=== PATIENT | male | born 1950 | race Caucasian/White ===

== ENCOUNTER → 2016-05-30 | Outpatient (CLI) | payer BC ==
[~2016-05-30] MED LIST: ASPI81TA28 PO; COEN100C7 PO; DEXL60CA4 PO; GLUCTAB7 PO; LISI20TA3 PO; MELA1TAB5 PO; MELA5TAB18 PO; MULT-190 PO; MULT-513 PO; OMEGCAP2 PO; PROB1TAB16 PO; SIMV-150 PO; TRAZ50TA35 PO; ZOLP5TAB PO
[2016-05-30 17:39] LABS: URINE APPEARANCE CLEAR (CLEAR); URINE BILIRUBIN NEG (NEG); URINE COLOR YELLOW; URINE EPITHELIAL CELL AUTO 0-5 /lpf (0-5); URINE NITRITE NEG (NEG); URINE PH 6.5 (4.5-7.5); URINE SPECIFIC GRAVITY 1.014 (1.000-1.030); UROBILINOGEN NEG (NEG); ZZUR CULT IF INDIC CLEAN CATCH YES
[2016-05-30 17:48] LABS: MANUAL MICROSCOPIC REQUIRED? NO; REVIEW REQ? NO
== END | disposition home or self-care (01) ==
LOC: C.LAB1850 15:51
PROVIDERS: ATTEND Internal Medicine
DX: N39.0 Urinary tract infection, site not specified (principal)

== ENCOUNTER → 2016-06-04 | Outpatient (CLI) | payer BC ==
[2016-06-04 17:33] LABS: BASO % 0.5 %; BASO ABS # 0.04 K/uL (0-0.2); COMPLETE YES; EOS % 1.8 %; HEMATOCRIT 39.9 % (42-52); IG% 0.5 %; LYMPH % 15.1 %; LYMPH ABS # 1.27 K/uL (1.2-3.4); MEAN CORPUSCULAR HEMOGLOBIN 32.2 pg (25-34); MEAN CORPUSCULAR HGB CONC 34.6 g/dl (32-36); MEAN PLATELET VOLUME 10.2 fL (7.4-10.4); MONO % 10.4 %; NEUT % 71.7 %; PLATELET COUNT 263 K/uL (130-400); RED BLOOD COUNT 4.29 M/uL (4.7-6.1)
[2016-06-04 17:51] LABS: ALT/SGPT 237 U/L (12-78); AST/SGOT 136 U/L (15-37); BLOOD UREA NITROGEN 12 mg/dl (7-18); BUN/CREATININE RATIO 12.1 (10-20); CALCIUM 8.9 mg/dl (8.5-10.1); CARBON DIOXIDE 29 mmol/L (21-32); CHLORIDE 103 mmol/L (98-107); GLUCOSE 100 mg/dl (70-99); POTASSIUM 3.6 mmol/L (3.5-5.1); SODIUM 141 mmol/L (136-145)
[2016-06-04 17:56] LABS: ALB/GLOB RATIO 0.9 (0.9-2); ALKALINE PHOSPHATASE 306 U/L (45-117); CHOLESTEROL 146 mg/dl (0-200); CHOLESTEROL/HDL RATIO 4.3; HDL CHOLESTEROL 34 mg/dl; LDL CHOLESTEROL CALCULATED 93 mg/dl; TRIGLYCERIDES 97 mg/dl (0-150); VERY LOW DENSITY LIPOPROT CALC 19 mg/dl
== END | disposition home or self-care (01) ==
LOC: C.LAB1850 16:38
PROVIDERS: ATTEND Internal Medicine
DX: R35.0 Frequency of micturition (principal); E78.5 Hyperlipidemia, unspecified

== ENCOUNTER → 2016-06-04 | Outpatient (CLI) | payer BC ==
[2016-06-04 18:15] LABS: URINE APPEARANCE CLEAR (CLEAR); URINE BILIRUBIN NEG (NEG); URINE COLOR YELLOW; URINE NITRITE NEG (NEG); UROBILINOGEN NEG (NEG)
[2016-06-04 18:41] LABS: MANUAL MICROSCOPIC REQUIRED? NO; REVIEW REQ? YES
[2016-06-04 19:02] LABS: URINE EPITHELIAL CELL AUTO 0-5 /lpf (0-5)
== END | disposition home or self-care (01) ==
LOC: C.LABSPEC 17:48
PROVIDERS: ATTEND Internal Medicine
DX: R35.0 Frequency of micturition (principal)

== ENCOUNTER → 2016-06-12 | Outpatient (CLI) | payer BC | END | disposition home or self-care (01) | LOC: C.LAB1850 08:59 | PROVIDERS: ATTEND Internal Medicine | DX: R97.20 Elevated prostate specific antigen [PSA] (principal); R74.8 Abnormal levels of other serum enzymes ==

== ENCOUNTER → 2016-07-15 | Outpatient (CLI) | payer BC | END | disposition home or self-care (01) | LOC: C.LABSPEC 17:15 | PROVIDERS: ATTEND Nurse Practitioner Family | DX: R30.0 Dysuria (principal) ==

== ENCOUNTER → 2016-07-31 | Outpatient (CLI) | payer BC | END | disposition home or self-care (01) | LOC: C.LAB1850 14:02 | PROVIDERS: ATTEND Urology | DX: Z00.00 Encounter for general adult medical examination without abnormal findings (principal); N39.0 Urinary tract infection, site not specified; R97.20 Elevated prostate specific antigen [PSA]; R35.0 Frequency of micturition ==

== ENCOUNTER → 2016-08-19 | Outpatient (CLI) | payer BC ==
[2016-08-21 22:40] LABS: GLIADIN DEAMIDATED IgA AB 5 UNITS (<20); GLIADIN DEAMIDATED IgG AB 3 UNITS (<20); RETICULIN IgA AB Negative (Negative)
== END | disposition home or self-care (01) ==
LOC: C.LAB1850 10:17
PROVIDERS: ATTEND Internal Medicine
DX: R14.0 Abdominal distension (gaseous) (principal); Z11.59 Encounter for screening for other viral diseases

== ENCOUNTER → 2016-10-14 | Outpatient (CLI) | payer BC ==
[~2016-10-14] VITALS: Ht 177.8 cm; Wt 94.5 kg
[2016-10-14 13:21] VITALS: BP 135/91; PULSE 79; Ht 177.8 cm; Wt 94.5 kg
== END | disposition home or self-care (01) ==
LOC: C.NEUR 12:07
PROVIDERS: ATTEND Internal Medicine Pulmonary Disease
DX: G47.30 Sleep apnea, unspecified (principal); G47.00 Insomnia, unspecified

== ENCOUNTER 2016-12-31 03:08 | Emergency (ER) | payer BC ==
[~2016-12-31] VITALS: Ht 176.5 cm; Wt 95.0 kg
[~2016-12-31 03:08] MED LIST changes: -COEN100C7 PO; -MELA5TAB18 PO; -MULT-190 PO; -ZOLP5TAB PO
[2016-12-31 03:11] VITALS: TEMP 36.4; Ht 176.5 cm; Wt 95.0 kg
[2016-12-31] MEDS ORDERED: ZOLP5TAB PO (03:45)
[2016-12-31] MEDS ORDERED: MULT-190 PO (03:45)
[2016-12-31] MEDS ORDERED: MELA5TAB18 PO (03:45)
[2016-12-31] MEDS ORDERED: COEN100C7 PO (03:45)
[2016-12-31 03:48] LABS: BASO % 0.4 %; BASO ABS # 0.02 K/uL (0-0.2); COMPLETE YES; EOS % 3.8 %; HEMATOCRIT 39.8 % (42-52); IG% 0.2 %; LYMPH % 40.4 %; LYMPH ABS # 1.89 K/uL (1.2-3.4); MEAN CELL VOLUME 91.7 fL (80-100); MEAN CORPUSCULAR HEMOGLOBIN 32.7 pg (25-34); MEAN CORPUSCULAR HGB CONC 35.7 g/dl (32-36); MEAN PLATELET VOLUME 10.1 fL (7.4-10.4); MONO % 10.7 %; NEUT % 44.5 %; PLATELET COUNT 208 K/uL (130-400); RED BLOOD COUNT 4.34 M/uL (4.7-6.1); WHITE BLOOD COUNT 4.68 K/uL (4.8-10.8)
[2016-12-31 04:09] LABS: ALT/SGPT 25 U/L (12-78); AST/SGOT 21 U/L (15-37); BLOOD UREA NITROGEN 14 mg/dl (7-18); BUN/CREATININE RATIO 14.4 (10-20); CALCIUM 8.6 mg/dl (8.5-10.1); CARBON DIOXIDE 28 mmol/L (21-32); CHLORIDE 110 mmol/L (98-107); GLUCOSE 98 mg/dl (70-99); POTASSIUM 3.8 mmol/L (3.5-5.1); SODIUM 144 mmol/L (136-145)
[2016-12-31 04:20] LABS: ALKALINE PHOSPHATASE 47 U/L (45-117)
--- NOTE | 2016-12-31 04:25 | EMERGENCY ROOM VISIT NOTE ---
History First contact with patient: 03:11 Chief Complaint: RAPID HEART RATE Stated Complaint: RAPID PULSE,HIGH BP History of Present Illness The patient is a 66 year old male who presents to the Emergency Room with complaints of racing heart this morning when he woke up to go the bathroom. he checked his heart rate on his fit and was 127. Patient states his heart rate is normally in the low 60s. Patient follows with Dr. Martinez from cardiology. He had a stress and echo 6 months ago that was normal per patient. Patient states he had a Holter monitor many years ago that was negative. Patient states he had 3 beers last night with dinner. He drinks every other night. Patient states he's been on for stress lately. Patient denies chest pain, dyspnea, fever, chills, nausea, vomiting, diarrhea, abdominal pain. No history of racing heart in the past. No prior heart disease. He states he checked his blood pressure and was 150/100. Review of Systems See HPI for pertinent positives & negatives. A total of 10 systems reviewed and were otherwise negative. Past Medical/Surgical History Medical Problems: (1) Hypertension Appendectomy, sleep apnea Family History Hypertension Social History Smoking Status: Former Smoker Alcohol Use: occasionally Drug Use: none Marital Status: Occupation Status: employed Current/Historical Medications Scheduled Aspirin (Aspirin Ec), 81 MG PO QAM Coenzyme Q10 (Ubidecarenone) (Coq10), 100 MG PO DAILY Dexlansoprazole (Dexilant), 1 TAB PO QAM Pzpskbgoskn-Povuoahyijp-Kgw C- (Glucosamine Chondroitin), 1 TAB PO QAM Lisinopril (Prinivil), 20 MG PO QAM Melatonin (Melatonin), 5 MG PO HS Multivitamins/Minerals (Mvi With Minerals), 1 TAB PO QAM Ocuvite Preservision (Ocuvite Preservision), 1 TAB PO DAILY [place]-3 Fatty Acids (Fish Oil), 1 CAP PO BID Probiotic Product (Probiotic), 1 TAB PO BID Simvastatin (Simvastatin), 10 MG PO HS Scheduled PRN Trazodone Hcl (Trazodone), 50 MG PO HS PRN for Sleep Zolpidem Tartrate (Ambien), 5 MG PO HS PRN for Sleep Physical Exam Vital Signs Date Time Temp Pulse Resp B/P (MAP) Pulse Ox O2 Delivery O2 Flow Rate FiO2 12/31/16 03:45 Room Air 12/31/16 03:43 Room Air 12/31/16 03:43 Room Air 12/31/16 03:38 82 12/31/16 03:11 36.4 100 20 142/87 92 Room Air Physical Exam VITALS: Vitals are noted on the nurse's note and reviewed by myself. Vital signs mildly hypertensive GENERAL: Pleasant male, in no acute distress, nondiaphoretic, well-developed well-nourished. SKIN: The skin was without rashes, erythema, edema, or bruising. There is no tenting of the skin. Capillary reflex less than 2 seconds. HEAD: Normocephalic atraumatic. EARS: External auditory canals clear, tympanic membranes pearly ybarar without erythema or effusion bilaterally. EYES: Pupils equal round and reactive to light and accommodation. Conjunctivae without injection, sclerae without icterus. Extraocular movements intact. NOSE: Patent, turbinates without inflammation or discharge. MOUTH: Mucous membranes moist. Pharynx without erythema or exudate. Uvula midline. Airway patent. Tongue does not deviate. NECK: Supple without nuchal rigidity. No lymphadenopathy. No thyromegaly. Cervical spine is nontender. No JVD. HEART: Regular rate and rhythm LUNGS: Clear to auscultation bilaterally without wheezes, rales or rhonchi. No dullness to percussion. No retractions or accessory muscle use. ABDOMEN: Positive bowel sounds x 4. Normal tympanic percussion. Soft, nontender, without masses or organomegaly. Horton sign negative. No guarding or rebound tenderness. MUSCULOSKELETAL: No muscle atrophy, erythema, or edema noted. NEURO: Patient was alert and oriented to person place and time. Normal sensation to light and sharp touch. No focal neurological deficits. Medical Decision & Procedures Laboratory Results 12/31/16 03:40 Red Blood Count 4.34, Mean Corpuscular Volume 91.7, Mean Corpuscular Hemoglobin 32.7, Mean Corpuscular Hemoglobin Concent 35.7, Mean Platelet Volume 10.1, Neutrophils (%) (Auto) 44.5, Lymphocytes (%) (Auto) 40.4, Monocytes (%) (Auto) 10.7, Eosinophils (%) (Auto) 3.8, Basophils (%) (Auto) 0.4, Neutrophils # (Auto ) 2.08, Lymphocytes # (Auto) 1.89, Monocytes # (Auto) 0.50, Eosinophils # (Auto ) 0.18, Basophils # (Auto) 0.02 12/31/16 03:40 Test 12/31/16 03:40 12/31/16 03:44 White Blood Count 4.68 K/uL (4.8-10.8) Red Blood Count 4.34 M/uL (4.7-6.1) Hemoglobin 14.2 g/dL (14.0-18.0) Hematocrit 39.8 % (42-52) Mean Corpuscular Volume 91.7 fL (80-100) Mean Corpuscular Hemoglobin 32.7 pg (25-34) Mean Corpuscular Hemoglobin Concent 35.7 g/dl (32-36) Platelet Count 208 K/uL (130-400) Mean Platelet Volume 10.1 fL (7.4-10.4) Neutrophils (%) (Auto) 44.5 % Lymphocytes (%) (Auto) 40.4 % Monocytes (%) (Auto) 10.7 % Eosinophils (%) (Auto) 3.8 % Basophils (%) (Auto) 0.4 % Neutrophils # (Auto) 2.08 K/uL (1.4-6.5) Lymphocytes # (Auto) 1.89 K/uL (1.2-3.4) Monocytes # (Auto) 0.50 K/uL (0.11-0.59) Eosinophils # (Auto) 0.18 K/uL (0-0.5) Basophils # (Auto) 0.02 K/uL (0-0.2) RDW Standard Deviation 43.5 fL (36.4-46.3) RDW Coefficient of Variation 12.9 % (11.5-14.5) Immature Granulocyte % (Auto) 0.2 % Immature Granulocyte # (Auto) 0.01 K/uL (0.00-0.02) Anion Gap 6.0 mmol/L (3-11) Est Creatinine Clear Calc Drug Dose 85.6 ml/min Estimated GFR () 91.8 Estimated GFR (Non- 79.2 BUN/Creatinine Ratio 14.4 (10-20) Calcium Level 8.6 mg/dl (8.5-10.1) Total Bilirubin 0.2 mg/dl (0.2-1) Direct Bilirubin < 0.1 mg/dl (0-0.2) Aspartate Amino Transf (AST/SGOT) 21 U/L (15-37) Alanine Aminotransferase (ALT/SGPT) 25 U/L (12-78) Alkaline Phosphatase 47 U/L (45-117) Troponin I < 0.015 ng/ml (0-0.045) Total Protein 7.0 gm/dl (6.4-8.2) Albumin 3.6 gm/dl (3.4-5.0) Thyroid Stimulating Hormone (TSH) 3.130 uIu/ml (0.300-4.500) Bedside Troponin I < 0.030 ng/ml (0-0.045) ED Course Prior records/ancillary studies reviewed. Triage Nursing notes reviewed. Additional history obtained from family. The patient's history was concerning for palpitations. Differential diagnosis: Etiologies such as premature contractions, electrolyte abnormality, cardiac dysrhythmia, thyroid dysfunction, pulmonary embolism, infection, gastrointestinal, as well as others were entertained. Physical examination: Benign as above. ER treatment provided: Patient was observed On reassessment the patient felt better. Diagnostic interpretation by me: Cardiac monitoring revealed no dysrhythmia. The electrocardiogram was negative for pathologic change. Normal sinus, normal intervals, no acute ST-T wave changes, rate of 96. Impression normal sinus rhythm interpreted by myself. Prior EKG was reviewed and unchanged The labs revealed euthyroid. Negative troponin Imaging studies: Chest x-ray with no acute consolidation, pneumothorax or free air per my interpretation This appears to be consistent with mild tachycardia that is now resolved prior to coming the ER. Patient was neurovascularly and neurologically intact. He is well-appearing. Unremarkable workup as above. He was advised to follow-up with cardiology and family care for outpatient Holter monitor and further testing. He was advised to return to the immediately for chest pains, palpitations, racing heart, worsening signs or symptoms or as needed. By the evaluation outlined above emergent etiologies such as electrolyte abnormality, cardiac dysrhythmia, thyroid dysfunction, pulmonary embolism, infection, as well as others were deemed relatively unlikely. The pt informed about the findings as listed above. All questions were answered and pleased with the treatment. Return instructions were outlined and the patient was discharged in stable condition. Referral: The patient was referred back to their primary care physician and/or cardiology for follow-up in 2 to 3 days for a recheck of the current condition Case reviewed with my attending Medical Decision As above Medication Reconcilliation Current Medication List: was personally reviewed by me Blood Pressure Screening Patient's blood pressure: Normal blood pressure Impression Primary Impression: Tachycardia Departure Information Dispostion Home / Self-Care Condition GOOD Referrals RV. Felder MD (PCP) Patient Instructions [facility] Additional Instructions Recommend outpatient Holter monitor. Rest and drink plenty of fluids as tolerated. Continue current medications. Return to the ER immediately for worsening or persistent racing heart, abdominal pain, vomiting, fevers, chest pains, difficulty breathing, worsening of your condition, or as needed. 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
[2016-12-31 04:32] VITALS: BP 134/81; PULSE 84; O2SAT 98
--- NOTE | 2016-12-31 06:40 | DIAGNOSTIC IMAGING REPORT ---
CHEST ONE VIEW PORTABLE CLINICAL HISTORY: CHEST PAIN dyspnea COMPARISON STUDY: 03/22/2015 FINDINGS: Chronic blunting left lateral costophrenic angle. Lungs are considered clear. No evidence for cardiac enlargement. IMPRESSION: Chronic change. No acute process. The above report was generated using voice recognition software. It may contain grammatical, syntax or spelling errors. Electronically signed by: Marcelo Green M.D. 12/31/2016 6:39 AM Dictated Date/Time: 12/31/2016 6:38 AM
== END 2016-12-31 04:33 | disposition home or self-care (01) ==
LOC: C.EDB 03:09
DX: R00.0 Tachycardia, unspecified (principal); I10 Essential (primary) hypertension; G47.30 Sleep apnea, unspecified; Z82.49 Family history of ischemic heart disease and other diseases of the circulatory system; Z87.891 Personal history of nicotine dependence; Z79.82 Long term (current) use of aspirin; Z79.899 Other long term (current) drug therapy

== ENCOUNTER → 2017-04-14 | Outpatient (CLI) | payer OTHER, MEDICARE ==
[~2017-04-14] VITALS: Ht 177.8 cm; Wt 97.0 kg
[~2017-04-14] MED LIST changes: +COEN100C7 PO; -MELA1TAB5 PO; +MELA5TAB18 PO; +MULT-190 PO; +ZOLP5TAB PO
[2017-04-14 14:18] VITALS: BP 139/85; PULSE 76; Ht 177.8 cm; Wt 97.0 kg
== END | disposition home or self-care (01) ==
LOC: C.NEUR 13:40
PROVIDERS: ATTEND Internal Medicine Pulmonary Disease
DX: G47.30 Sleep apnea, unspecified (principal); G47.00 Insomnia, unspecified

== ENCOUNTER → 2017-05-07 | Outpatient (CLI) | payer OTHER, MEDICARE | END | disposition home or self-care (01) | LOC: C.LAB1850 11:33 | PROVIDERS: ATTEND Internal Medicine | DX: R74.8 Abnormal levels of other serum enzymes (principal) ==